=== PATIENT | female | born 1940 | race African-American/Black ===

== ENCOUNTER 2017-01-21 11:49 | Inpatient (IN) | payer MEDICARE, BC ==
[~2017-01-21] VITALS: Ht 160 cm; Wt 45.8 kg
[2017-01-21 12:24] VITALS: BP 192/90
[2017-01-21 13:15] LABS: BASOPHILS % (AUTO) 0.6 % (0.0-2.0); EOSINOPHILS % (AUTO) 1.2 % (0.0-3.0); LYMPHOCYTES % (AUTO) 15.6 % (20.0-45.0); MEAN CORPUSCULAR HEMOGLOBIN 29.4 PG (27.0-31.0); MEAN CORPUSCULAR HGB CONC 31.5 G/DL (32.0-36.0); MEAN CORPUSCULAR VOLUME 94 FL (80-99); MEAN PLATELET VOLUME 7.2 FL (6.5-10.1); MONOCYTES % (AUTO) 6.9 % (1.0-10.0); NEUTROPHILS % (AUTO) 75.7 % (45.0-75.0); PLATELET COUNT 412 K/UL (150-450); RED BLOOD COUNT 3.67 M/UL (4.20-5.40); WHITE BLOOD COUNT 12.9 K/UL (4.8-10.8)
[2017-01-21 13:30] VITALS: BP 171/119
[2017-01-21 13:45] LABS: THYROID STIMULATING HORMONE 1.11 uIU/mL (0.300-4.500)
--- NOTE | 2017-01-21 14:14 | Diagnostic Imaging Report ---
Indications: History of multiple TIAs, left-sided weakness Technique: Spiral acquisitions obtained through the brain. Angled axial and coronal 5 x 5 mm slices were reconstructed. Total dose length product 1358 mGycm. CTDI vol(s) 70 mGy Comparison: None Findings: There is age-related enlargement of ventricles and extra-axial CSF spaces. Old lacunar infarct are seen in the right basal ganglia. No acute hemorrhage or edema. No mass effect or midline shift. There is extensive periventricular the white matter chronic ischemic change. There is complete opacification of left maxillary sinus as well as of the left ethmoid sinuses in the right sphenoid sinus. The mastoids are clear. The included orbits are unremarkable. The calvarium is intact. Impression: Chronic and age-related changes. Negative for acute intracranial bleed or mass effect Fairly extensive sinus disease The CT scanner at [facility] is accredited by the [employer] and the scans are performed using protocols designed to limit radiation exposure to as low as reasonably achievable to attain images of sufficient resolution adequate for diagnostic evaluation.
[2017-01-21 14:24] VITALS: BP 164/98
[2017-01-21 14:45] LABS: ALANINE AMINOTRANSFERASE 14 U/L (3-33); ALBUMIN/GLOBULIN RATIO 0.7 (1.0-2.7); ANION GAP 19 (5-15); ASPARTATE AMINO TRANSFERASE 17 U/L (5-40); CALCIUM 9.1 mg/dL (8.6-10.2); CARBON DIOXIDE 21 mEQ/L (20-30); CHLORIDE 100 mEQ/L (98-107); CREATININE 0.9 mg/dL (0.5-0.9); HEMOLYSIS 2; LIPASE 63 U/L (< 60); POTASSIUM 3.4 mEQ/L (3.4-4.9); SODIUM 140 mEQ/L (135-145); TOTAL PROTEIN 6.9 g/dL (6.6-8.7)
--- NOTE | 2017-01-21 14:58 | Emergency Room Report ---
History of Present Illness General Chief Complaint: General Complaint Source: Patient, Family Member, PMD Present Illness HPI This patient presents at the request of her primary care physician. She is accompanied by her . The patient has been declining over the past several months has not been eating. She is having failure to thrive and a significant amount of weight loss. She presents for further evaluation and admission to the hospital for G-tube placement. The patient herself has no complaints. She denies pain. There's been no recent illness. There is no vomiting. There are no other complaints. Allergies: Coded Allergies: No Known Allergies (Unverified , 01/21/17) Patient History Past Medical History: see triage record, DM, HTN, CVA/TIA, dementia Social History: Denies: alcohol use, drug use, smoking Reviewed Nursing Documentation: PMH: Agreed, PSxH: Agreed Nursing Documentation-PMH Past Medical History: No History, Except For Hx Hypertension: Yes Hx Diabetes: Yes Hx Cerebrovascular Accident: Yes - TIA x 4 Review of Systems All Other Systems: negative except mentioned in HPI Physical Exam Vital Signs Date Time Temp Pulse Resp B/P Pulse Ox O2 Delivery O2 Flow Rate FiO2 01/21/17 12:19 99.3 95 18 192/90 100 Room Air Sp02 EP Interpretation: reviewed, normal General Appearance: no apparent distress, alert, GCS 15, non-toxic, cachetic Head: normocephalic, atraumatic Eyes: bilateral eye PERRL, bilateral eye normal inspection ENT: hearing grossly normal, normal pharynx, no angioedema, normal voice Neck: full range of motion, supple/symm/no masses Respiratory: chest non-tender, lungs clear, normal breath sounds, speaking full sentences Cardiovascular #1: regular rate, rhythm, no edema Gastrointestinal: normal bowel sounds, non tender, soft, non-distended, no guarding, no rebound Rectal: deferred Musculoskeletal: back normal, normal range of motion, non-tender Neurologic: alert, oriented x3, responsive, motor strength/tone normal, sensory intact, speech normal Psychiatric: judgement/insight normal, memory normal, mood/affect normal, no suicidal/homicidal ideation Skin: normal color, no rash, warm/dry, well hydrated Medical Decision Making Diagnostic Impression: Primary Impression: Failure to thrive in adult Additional Impressions: Dementia Weight loss ER Course This patient presents with failure to thrive, weight loss and dementia. She presents for G-tube placement. She's had significant decline over the past 7 months. She was admitted for further evaluation and treatment. There are no significant abnormalities found on CBC or CMP. She was admitted to the medical surgical floor. Labs Test 01/21/17 13:00 01/21/17 14:16 White Blood Count 12.9 K/UL (4.8-10.8) Red Blood Count 3.67 M/UL (4.20-5.40) Hemoglobin 10.8 G/DL (12.0-16.0) Hematocrit 34.3 % (37.0-47.0) Mean Corpuscular Volume 94 FL (80-99) Mean Corpuscular Hemoglobin 29.4 PG (27.0-31.0) Mean Corpuscular Hemoglobin Concent 31.5 G/DL (32.0-36.0) Red Cell Distribution Width 14.0 % (11.6-14.8) Platelet Count 412 K/UL (150-450) Mean Platelet Volume 7.2 FL (6.5-10.1) Neutrophils (%) (Auto) 75.7 % (45.0-75.0) Lymphocytes (%) (Auto) 15.6 % (20.0-45.0) Monocytes (%) (Auto) 6.9 % (1.0-10.0) Eosinophils (%) (Auto) 1.2 % (0.0-3.0) Basophils (%) (Auto) 0.6 % (0.0-2.0) Thyroid Stimulating Hormone (TSH) 1.110 uIU/mL (0.300-4.500) Free Thyroxine 1.13 ng/dL (0.86-1.85) Free Triiodothyronine 2.0 pg/mL (2.3-4.2) Sodium Level 140 mEQ/L (135-145) Potassium Level 3.4 mEQ/L (3.4-4.9) Chloride Level 100 mEQ/L (98-107) Carbon Dioxide Level 21 mEQ/L (20-30) Anion Gap 19 (5-15) Blood Urea Nitrogen 22 mg/dL (7-23) Creatinine 0.9 mg/dL (0.5-0.9) Estimat Glomerular Filtration Rate mL/min (>60) Glucose Level 143 mg/dL (74-106) Calcium Level 9.1 mg/dL (8.6-10.2) Total Bilirubin 0.5 mg/dL (0.0-1.2) Aspartate Amino Transf (AST/SGOT) 17 U/L (5-40) Alanine Aminotransferase (ALT/SGPT) 14 U/L (3-33) Alkaline Phosphatase 41 U/L (35-104) Total Protein 6.9 g/dL (6.6-8.7) Albumin 2.9 g/dL (3.5-5.2) Globulin 4.0 g/dL Albumin/Globulin Ratio 0.7 (1.0-2.7) Lipase 63 U/L (< 60) EKG Diagnostic Results Rate: normal Rhythm: NSR ST Segments: no acute changes Rhythm Strip Diag. Results EP Interpretation: yes Rate: 90's Rhythm: NSR, no PVC's, no ectopy Last Vital Signs Date Time Temp Pulse Resp B/P Pulse Ox O2 Delivery O2 Flow Rate FiO2 01/21/17 14:40 99.3 91 16 164/98 100 Room Air Disposition: ADMITTED INPATIENT Condition: Stable Referrals: ELLIE SOSA (PCP) MARTIN GONZALEZ D.O. Jan 21, 2017 14:57
[2017-01-21] MEDS ORDERED: ZETIA10 MG ORAL (15:23)
[2017-01-21] MEDS ORDERED: ASPIR 8181 MG ORAL (15:23)
[2017-01-21] MEDS ORDERED: AMLODIPINE BES2.5 MG ORAL (15:23)
[2017-01-21] MEDS ORDERED: METFORMIN HCL500 M5 PO (15:23)
[2017-01-21] MEDS ORDERED: LISINOPRIL-HCT1 EACH ORAL (15:23)
[2017-01-21] MEDS ORDERED: PLAVIX75 MG ORAL (15:23)
[2017-01-21 16:00] VITALS: BP_SYST 156; BP_SYST 166; BP_DIAS 91; BP_DIAS 99
[2017-01-21] MEDS ORDERED: Morphine Sulfate 2mg/ml Inj IVP PRN (16:45)
[2017-01-21] MEDS ORDERED: LORazepam Inj 2mg/ml 1ml IV PRN (16:45)
[2017-01-21] MEDS ORDERED: Mylanta II UD 30ml ORAL PRN (16:45)
--- NOTE | 2017-01-21 16:56 | History and Physical ---
History of Present Illness General Date patient seen: Jan 21, 2017 Reason for Hospitalization: not eating Present Illness HPI 76 year old female with hx of CVA, DM, HTN, presented at the request of her primary care physician for evaluation of declining over the past several months , and not been eating. She is having failure to thrive and a significant amount of weight loss. She presents for further evaluation and admission to the hospital for potential G-tube placement. The patient herself has no complaints. She denies pain. There's been no recent illness. There is no vomiting. There are no other complaints. Allergies: Coded Allergies: No Known Allergies (Unverified , 01/21/17) Medication History Scheduled Amlodipine Besylate* (Amlodipine Besylate*), 2.5 MG ORAL DAILY, (Reported) Aspirin* (Aspir 81*), 81 MG ORAL DAILY, (Reported) Clopidogrel Bisulfate* (Plavix*), 75 MG ORAL DAILY, (Reported) Ezetimibe (Zetia*), 10 MG ORAL BEDTIME, (Reported) Lisinopril/Hydrochlorothiazide 10-12.5 Mg Tab (Lisinopril-Hctz 10-12.5 Mg Tab), 1 TAB ORAL DAILY, (Reported) Metformin HCl (Metformin HCl ER), 500 MG PO DAILY, (Reported) Patient History History Provided By: Patient Healthcare decision maker Resuscitation status Advanced Directive on File No Past Medical/Surgical History Past Medical/Surgical History: (1) Cerebrovascular accident (CVA) (2) Diabetes mellitus (3) Weight loss (4) Dementia Review of Systems All Other Systems: negative except mentioned in HPI Physical Exam General Appearance: cachetic Lines, tubes and drains: peripheral HEENT: normocephalic, atraumatic Neck: non-tender, normal alignment Respiratory/Chest: chest wall non-tender, lungs clear Cardiovascular/Chest: normal peripheral pulses, normal rate Abdomen: normal bowel sounds, non tender Extremities: normal range of motion Skin Exam: normal pigmentation Neurologic: hand box folder II-XII grossly normal Last 24 Hour Vital Signs Date Time Temp Pulse Resp B/P Pulse Ox O2 Delivery O2 Flow Rate FiO2 01/21/17 14:40 99.3 91 16 164/98 100 Room Air 01/21/17 14:24 91 16 164/98 100 Room Air 01/21/17 13:30 97 16 171/119 100 Room Air 01/21/17 12:24 99.3 89 18 192/90 100 Room Air 01/21/17 12:19 99.3 95 18 192/90 100 Room Air Laboratory Tests Test 01/21/17 13:00 01/21/17 14:16 White Blood Count 12.9 K/UL (4.8-10.8) H Red Blood Count 3.67 M/UL (4.20-5.40) L Hemoglobin 10.8 G/DL (12.0-16.0) L Hematocrit 34.3 % (37.0-47.0) L Mean Corpuscular Volume 94 FL (80-99) Mean Corpuscular Hemoglobin 29.4 PG (27.0-31.0) Mean Corpuscular Hemoglobin Concent 31.5 G/DL (32.0-36.0) L Red Cell Distribution Width 14.0 % (11.6-14.8) Platelet Count 412 K/UL (150-450) Mean Platelet Volume 7.2 FL (6.5-10.1) Neutrophils (%) (Auto) 75.7 % (45.0-75.0) H Lymphocytes (%) (Auto) 15.6 % (20.0-45.0) L Monocytes (%) (Auto) 6.9 % (1.0-10.0) Eosinophils (%) (Auto) 1.2 % (0.0-3.0) Basophils (%) (Auto) 0.6 % (0.0-2.0) Thyroid Stimulating Hormone (TSH) 1.110 uIU/mL (0.300-4.500) Free Thyroxine 1.13 ng/dL (0.86-1.85) Free Triiodothyronine 2.0 pg/mL (2.3-4.2) L Sodium Level 140 mEQ/L (135-145) Potassium Level 3.4 mEQ/L (3.4-4.9) Chloride Level 100 mEQ/L (98-107) Carbon Dioxide Level 21 mEQ/L (20-30) Anion Gap 19 (5-15) H Blood Urea Nitrogen 22 mg/dL (7-23) Creatinine 0.9 mg/dL (0.5-0.9) Estimat Glomerular Filtration Rate mL/min (>60) Glucose Level 143 mg/dL (74-106) H Calcium Level 9.1 mg/dL (8.6-10.2) Total Bilirubin 0.5 mg/dL (0.0-1.2) Aspartate Amino Transf (AST/SGOT) 17 U/L (5-40) Alanine Aminotransferase (ALT/SGPT) 14 U/L (3-33) Alkaline Phosphatase 41 U/L (35-104) Total Protein 6.9 g/dL (6.6-8.7) Albumin 2.9 g/dL (3.5-5.2) L Globulin 4.0 g/dL Albumin/Globulin Ratio 0.7 (1.0-2.7) L Lipase 63 U/L (< 60) H Height (Feet): 5 Height (Inches): 4.00 Weight (Pounds): 102 Medications Current Medications Medications (Trade) Dose Ordered Sig/Mian Route PRN Reason Start Time Stop Time Status Last Admin Dose Admin Acetaminophen (Tylenol) 650 mg Q4H PRN ORAL fever 01/21/17 16:45 02/20/17 16:44 UNV Al Hydroxide/Mg Hydroxide (Mylanta II) 30 ml Q6H PRN ORAL dyspepsia 01/21/17 16:45 02/20/17 16:44 UNV Amlodipine Besylate (Norvasc) 2.5 mg DAILY ORAL 01/22/17 09:00 02/21/17 08:59 UNV Amlodipine Besylate (Norvasc) 10 mg DAILY ORAL 01/22/17 09:00 02/21/17 08:59 UNV Dextrose (Dextrose 50%) STAT PRN IV Hypoglycemia 01/21/17 16:45 02/20/17 16:44 UNV Lisinopril (Prinivil) 20 mg DAILY ORAL 01/21/17 16:45 02/20/17 16:44 UNV Lorazepam (Ativan 2mg/ml 1ml) 0.5 mg Q4H PRN IV For Anxiety 01/21/17 16:45 01/28/17 16:44 UNV Morphine Sulfate (Morphine Sulfate) 1 mg EVERY 4 HOURS PRN IVP For Pain 01/21/17 16:45 01/28/17 16:44 UNV Ondansetron HCl (Zofran) 4 mg Q6H PRN IVP Nausea & Vomiting 01/21/17 16:45 02/20/17 16:44 UNV Polyethylene Glycol (Miralax) 17 gm HSPRN PRN ORAL Constipation 01/21/17 16:45 02/20/17 16:44 UNV Zolpidem Tartrate (Ambien) 5 mg HSPRN PRN ORAL Insomnia 01/21/17 16:45 02/20/17 16:44 UNV Assessment/Plan Problem List: (1) Failure to thrive in adult ICD Codes: R62.7 - Adult failure to thrive SNOMED: 019456611 (2) Severe protein-calorie malnutrition ICD Codes: E43 - Unspecified severe protein-calorie malnutrition SNOMED: 569765083 (3) Weight loss ICD Codes: R63.4 - Abnormal weight loss SNOMED: 75515536 (4) Dementia ICD Codes: F03.90 - Unspecified dementia without behavioral disturbance SNOMED: 75166493 (5) Diabetes mellitus ICD Codes: E11.9 - Type 2 diabetes mellitus without complications SNOMED: 46080690 (6) Cerebrovascular accident (CVA) ICD Codes: I63.9 - Cerebral infarction, unspecified SNOMED: 502665593 (7) HTN (hypertension) ICD Codes: I10 - Essential (primary) hypertension SNOMED: 36666069 Assessment/Plan calorie count swallow evaluation PT/ot psych evaluation GI evaluation dv t prophylasix monitor BP and treat, TONA BLANDON Jan 21, 2017 16:56
[2017-01-21] MEDS: Lisinopril 20mg tab ORAL SCH (17:46)
[2017-01-21 18:28] LABS: PROTHROMBIN TIME 10.6 SEC (9.30-11.50)
[2017-01-21 19:05] LABS: ANISOCYTOSIS 1+; BAND NEUTROPHILS % (MANUAL) 3 % (0-8); BASOPHILS % (MANUAL) 0 % (0-2); EOSINOPHILS % (MANUAL) 1 % (0-3); HYPOCHROMASIA 1+; LYMPHOCYTES % (MANUAL) 28 % (20-45); NEUTROPHILS % (MANUAL) 60 % (45-75); PLATELET ESTIMATE ADEQUATE; PLATELET MORPHOLOGY NORMAL; TOTAL CELLS COUNTED 100
[2017-01-21 19:16] LABS: PATH BLOOD SMEAR/OMC SENT TO PATHOLOGIST
[2017-01-21] MEDS: NovoLOG Insulin Flexpen SUBQ SCH (20:06)
[2017-01-21] MEDS ORDERED: Zolpidem 5mg tab ORAL PRN (21:00)
[2017-01-21] MEDS ORDERED: Miralax 17gm pkt ORAL PRN (21:00)
[2017-01-21 21:02] VITALS: BP 161/80
[2017-01-22 00:05] VITALS: BP 163/91
[2017-01-22 04:00] VITALS: BP 144/82
[2017-01-22] MEDS: NovoLOG Insulin Flexpen SUBQ SCH ×4 (06:09→22:16)
[2017-01-22 06:36] LABS: BASOPHILS % (AUTO) 0.4 % (0.0-2.0); EOSINOPHILS % (AUTO) 1.6 % (0.0-3.0); LYMPHOCYTES % (AUTO) 21.8 % (20.0-45.0); MEAN CORPUSCULAR HEMOGLOBIN 29.3 PG (27.0-31.0); MEAN CORPUSCULAR HGB CONC 31.6 G/DL (32.0-36.0); MEAN CORPUSCULAR VOLUME 93 FL (80-99); MEAN PLATELET VOLUME 6.8 FL (6.5-10.1); NEUTROPHILS % (AUTO) 68.2 % (45.0-75.0); PLATELET COUNT 420 K/UL (150-450); RED BLOOD COUNT 3.16 M/UL (4.20-5.40)
[2017-01-22 07:03] LABS: ALANINE AMINOTRANSFERASE 17 U/L (3-33); ALBUMIN/GLOBULIN RATIO 0.8 (1.0-2.7); ANION GAP 17 (5-15); ASPARTATE AMINO TRANSFERASE 19 U/L (5-40); CALCIUM 8.8 mg/dL (8.6-10.2); CARBON DIOXIDE 22 mEQ/L (20-30); CHLORIDE 101 mEQ/L (98-107); CHOLESTEROL 167 mg/dL (< 200); CHOLESTEROL/HDL RATIO 5.4 (3.3-4.4); CREATININE 0.6 mg/dL (0.5-0.9); HEMOLYSIS 4; LDL CHOLESTEROL (CALC.) 119 mg/dL (60-99); POTASSIUM 3.3 mEQ/L (3.4-4.9); SODIUM 140 mEQ/L (135-145); TOTAL PROTEIN 6.5 g/dL (6.6-8.7)
[2017-01-22 07:33] VITALS: BP 166/99
[2017-01-22] MEDS: Lisinopril 20mg tab ORAL SCH (10:50)
[2017-01-22] MEDS: Heparin 5000 units/ml inj SUBQ SCH ×2 (10:52→22:17)
[2017-01-22 11:15] VITALS: BP 193/111
[2017-01-22 16:00] VITALS: BP 159/90
--- NOTE | 2017-01-22 16:10 | GI Initial Consult Note ---
PerlitaCarmel Atwoodoi N.P. 01/22/17 1610: History of Present Illness General Date patient seen: Jan 22, 2017 Time patient seen: 13:00 Reason for Hospitalization: General Complaint Referring physician: TONA AGARWAL Reason for Consultation: FTT Present Illness HPI This patient presents at the request of her primary care physician. She is accompanied by her . The patient has been declining over the past several months has not been eating. She is having failure to thrive and a significant amount of weight loss. She presents for further evaluation and admission to the hospital for G-tube placement. The patient herself has no complaints. She denies pain. There's been no recent illness. There is no vomiting. There are no other complaints. GI CONSULT: HPI as noted above. GI consulted for PEG evaluation. Pt seen on floor, awake and alert NAD. She presents today with leukocytosis, anemia, hypoalbuminemia and elevated lipase. Unknown history of endoscopic procedures. Home Meds Active Scripts Insulin Aspart (Novolog Flexpen) 100 Unit/1 Ml Insuln.pen, 0 UNITS SUBQ BEFORE MEALS AND HS for 30 Days, EA Prov:JAMIA01/23/17 Mirtazapine* (MIRTAZAPINE*) 15 Mg Tablet, 15 MG ORAL BEDTIME for 30 Days, TAB Prov:NORIS01/23/17 Lisinopril (LISINOPRIL*) 20 Mg Tablet, 20 MG ORAL DAILY for 30 Days, TAB Prov:NORIS01/23/17 Dronabinol* (MARINOL*) 2.5 Mg Capsule, 2.5 MG ORAL BID for 30 Days, CAP Prov:MERCEDEZ01/23/17 Amlodipine Besylate (Norvasc) 10 Mg Tablet, 10 MG ORAL DAILY for 30 Days, TAB Prov:MERCEDEZ01/23/17 Reported Medications Metformin HCl (Metformin HCl ER) 500 Mg [id number], 500 MG PO DAILY, TAB 01/21/17 Aspirin* (ASPIR 81*) 81 Mg Tablet.dr, 81 MG ORAL DAILY, TAB 01/21/17 Ezetimibe (ZETIA*) 10 Mg Tablet, 10 MG ORAL BEDTIME, TAB 01/21/17 Amlodipine Besylate* (AMLODIPINE BESYLATE*) 2.5 Mg Tablet, 2.5 MG ORAL DAILY, TAB 01/21/17 Clopidogrel Bisulfate* (PLAVIX*) 75 Mg Tablet, 75 MG ORAL DAILY, TAB 01/21/17 Discontinued Reported Medications Lisinopril/Hydrochlorothiazide 10-12.5 Mg Tab (LISINOPRIL-HCTZ 10-12.5 MG TAB) 1 Each Tablet, 1 TAB ORAL DAILY, TAB 01/21/17 Med list reviewed/reconciled: Yes Allergies: Coded Allergies: No Known Allergies (Unverified , 01/21/17) Patient History History Provided By: Medical Record PMH Narrative Past Medical History: see triage record, DM, HTN, CVA/TIA, dementia Social History: Denies: alcohol use, drug use, smoking Reviewed Nursing Documentation: PMH: Agreed, PSxH: Agreed Nursing Documentation-PMH Past Medical History: No History, Except For Hx Hypertension: Yes Hx Diabetes: Yes Hx Cerebrovascular Accident: Yes - TIA x 4 Review of Systems All Other Systems: limited Physical Exam Vital Signs Date Time Temp Pulse Resp B/P Pulse Ox O2 Delivery O2 Flow Rate FiO2 01/21/17 12:19 99.3 95 18 192/90 100 Room Air Sp02 EP Interpretation: reviewed Labs Laboratory Tests Test 01/21/17 17:20 01/22/17 05:15 Erythrocyte Sedimentation Rate 77 MM/HR (0-30) H Reticulocyte Count 2.0 % (0.0-2.0) Prothrombin Time 10.6 SEC (9.30-11.50) Prothromb Time International Ratio 1.0 (0.9-1.1) Activated Partial Thromboplast Time 27 SEC (23-33) Iron Level 70 ug/dL (37-145) Total Iron Binding Capacity 190 ug/dL (250-400) L Percent Iron Saturation 37 % (15-50) Unsaturated Iron Binding 120 ug/dL (112-346) Lactate Dehydrogenase 156 U/L (135-230) Carcinoembryonic Antigen 3.3 ng/mL H Vitamin B12 Level 756 pg/mL (211-946) Folate 9.0 ng/mL (>3.0) White Blood Count 12.0 K/UL (4.8-10.8) H Red Blood Count 3.16 M/UL (4.20-5.40) L Hemoglobin 9.3 G/DL (12.0-16.0) L Hematocrit 29.3 % (37.0-47.0) L Mean Corpuscular Volume 93 FL (80-99) Mean Corpuscular Hemoglobin 29.3 PG (27.0-31.0) Mean Corpuscular Hemoglobin Concent 31.6 G/DL (32.0-36.0) L Red Cell Distribution Width 14.0 % (11.6-14.8) Platelet Count 420 K/UL (150-450) Mean Platelet Volume 6.8 FL (6.5-10.1) Neutrophils (%) (Auto) 68.2 % (45.0-75.0) Lymphocytes (%) (Auto) 21.8 % (20.0-45.0) Monocytes (%) (Auto) 8.0 % (1.0-10.0) Eosinophils (%) (Auto) 1.6 % (0.0-3.0) Basophils (%) (Auto) 0.4 % (0.0-2.0) Sodium Level 140 mEQ/L (135-145) Potassium Level 3.3 mEQ/L (3.4-4.9) L Chloride Level 101 mEQ/L (98-107) Carbon Dioxide Level 22 mEQ/L (20-30) Anion Gap 17 (5-15) H Blood Urea Nitrogen 14 mg/dL (7-23) Creatinine 0.6 mg/dL (0.5-0.9) Estimat Glomerular Filtration Rate mL/min (>60) Glucose Level 96 mg/dL (74-106) Calcium Level 8.8 mg/dL (8.6-10.2) Total Bilirubin 0.7 mg/dL (0.0-1.2) Aspartate Amino Transf (AST/SGOT) 19 U/L (5-40) Alanine Aminotransferase (ALT/SGPT) 17 U/L (3-33) Alkaline Phosphatase 38 U/L (35-104) Total Protein 6.5 g/dL (6.6-8.7) L Albumin 2.9 g/dL (3.5-5.2) L Globulin 3.6 g/dL Albumin/Globulin Ratio 0.8 (1.0-2.7) L Triglycerides Level 86 mg/dL (< 150) Cholesterol Level 167 mg/dL (< 200) LDL Cholesterol 119 mg/dL (60-99) H HDL Cholesterol 31 mg/dL (> 60) Cholesterol/HDL Ratio 5.4 (3.3-4.4) H General Appearance: no apparent distress, thin Head: normocephalic EENT: normal ENT inspection Neck: supple Respiratory: normal breath sounds, no respiratory distress Cardiovascular: normal rate Gastrointestinal: normal inspection, non tender, soft Rectal: deferred Neurologic: normal inspection, alert, responsive Psychiatric: normal inspection, judgement/insight normal Skin: normal inspection, normal color, no rash Lymphatic: normal inspection, no adenopathy Current Medications Current Medications Medications (Trade) Dose Ordered Sig/Mian Route PRN Reason Start Time Stop Time Status Last Admin Dose Admin Acetaminophen (Tylenol) 650 mg Q4H PRN ORAL T>100.5 01/21/17 16:45 02/20/17 16:44 Al Hydroxide/Mg Hydroxide (Mylanta II) 30 ml Q6H PRN ORAL dyspepsia 01/21/17 16:45 02/20/17 16:44 Amlodipine Besylate (Norvasc) 10 mg DAILY ORAL 01/22/17 18:00 02/21/17 17:59 Dextrose (Dextrose 50%) STAT PRN IV Hypoglycemia 01/21/17 17:00 02/20/17 16:59 Heparin Sodium (Porcine) (Heparin 5000 units/ml) 5,000 units EVERY 12 HOURS SUBQ 01/22/17 09:00 02/21/17 08:59 01/22/17 10:52 Insulin Aspart (NovoLOG) BEFORE MEALS AND HS SUBQ 01/21/17 21:00 02/20/17 20:59 01/22/17 14:18 Lisinopril (Prinivil) 20 mg DAILY ORAL 01/21/17 17:30 02/20/17 17:29 01/22/17 10:50 Lorazepam (Ativan 2mg/ml 1ml) 0.5 mg Q4H PRN IV For Anxiety 01/21/17 16:45 01/28/17 16:44 Morphine Sulfate (Morphine Sulfate) 1 mg Q4H PRN IVP PAIN 4-10 01/21/17 16:45 01/28/17 16:44 Ondansetron HCl (Zofran) 4 mg Q6H PRN IVP Nausea & Vomiting 01/21/17 16:45 02/20/17 16:44 Polyethylene Glycol (Miralax) 17 gm HSPRN PRN ORAL Constipation 01/21/17 21:00 02/20/17 20:59 Zolpidem Tartrate (Ambien) 5 mg HSPRN PRN ORAL Insomnia 01/21/17 21:00 02/20/17 20:59 GI: Plan Problems: (1) Anemia (2) Hypoalbuminemia due to protein-calorie malnutrition (3) Elevated lipase (4) Failure to thrive in adult (5) Severe protein-calorie malnutrition (6) Dementia (7) Weight loss Plan ST eval reviewed >> MECH SOFT(GROUND) WITH NECTAR THICK LIQUIDS. STRICT ASPIRATION PRECAUTIONS WITH 1TO1 FEEDING. anemia work up reviewed >> pending OB stool collection, otherwise unremarkable head CT reviewed >> negative will consider PEG pending video swallow fu APCT fu calorie count push PO H2 monitor H&H, transfuse prn repeat lipase fu labs Discussed with Dr. Henriquez. Thank you for referring this patient, we will follow. ANDREIA HENRIQUEZ 01/30/17 1416: History of Present Illness General Reason for Hospitalization: General Complaint Present Illness Home Meds Active Scripts Insulin Aspart (Novolog Flexpen) 100 Unit/1 Ml Insuln.pen, 0 UNITS SUBQ BEFORE MEALS AND HS for 30 Days, EA Prov:NORIS01/23/17 Mirtazapine* (MIRTAZAPINE*) 15 Mg Tablet, 15 MG ORAL BEDTIME for 30 Days, TAB Prov:,01/23/17 Lisinopril (LISINOPRIL*) 20 Mg Tablet, 20 MG ORAL DAILY for 30 Days, TAB Prov:01/23/17 Dronabinol* (MARINOL*) 2.5 Mg Capsule, 2.5 MG ORAL BID for 30 Days, CAP Prov:01/23/17 Amlodipine Besylate (Norvasc) 10 Mg Tablet, 10 MG ORAL DAILY for 30 Days, TAB Prov:,01/23/17 Reported Medications Metformin HCl (Metformin HCl ER) 500 Mg [id number], 500 MG PO DAILY, TAB 01/21/17 Aspirin* (ASPIR 81*) 81 Mg Tablet.dr, 81 MG ORAL DAILY, TAB 01/21/17 Ezetimibe (ZETIA*) 10 Mg Tablet, 10 MG ORAL BEDTIME, TAB 01/21/17 Amlodipine Besylate* (AMLODIPINE BESYLATE*) 2.5 Mg Tablet, 2.5 MG ORAL DAILY, TAB 01/21/17 Clopidogrel Bisulfate* (PLAVIX*) 75 Mg Tablet, 75 MG ORAL DAILY, TAB 01/21/17 Discontinued Reported Medications Lisinopril/Hydrochlorothiazide 10-12.5 Mg Tab (LISINOPRIL-HCTZ 10-12.5 MG TAB) 1 Each Tablet, 1 TAB ORAL DAILY, TAB 01/21/17 Allergies: Coded Allergies: No Known Allergies (Unverified , 01/21/17) GI: Plan Plan The patient was seen and examined at bedside and all new and available data was reviewed in the patients chart. I agree with the above findings, impression and plan. (Patient seen earlier today. Signature stamp does not reflect patient encounter time.). -Carmel Valerio MD, N.P. Jan 22, 2017 16:10 ANDREIA HENRIQUEZ Jan 30, 2017 14:16
[2017-01-22 19:00] VITALS: BP 144/88
[2017-01-23] VITALS: BP 148/92
--- NOTE | 2017-01-23 00:08 | Consultation ---
DATE OF CONSULTATION: 01/22/2017 HISTORY OF PRESENT ILLNESS: This is a 76-year-old female with a history of hypertension, diabetes mellitus, CVA, TIA, and dementia has been admitted to the hospital due to and weight loss. The patient is having failure to thrive and has lost weight significantly. During the evaluation, the patient presented with depressed mood, decreased energy, anhedonia, cognitive impairment including memory and concentration and intervention. No manic or psychotic symptoms. The patient does not have any other GI symptoms including vomiting or nausea. PAST PSYCHIATRIC HISTORY: Denies any history of psychiatric disorder, however, she is diagnosed with dementia. She is currently on no psychotropic medications. PAST MEDICAL HISTORY: Significant for diabetes mellitus, hypertension, CVA, TIA, and dementia. ALLERGIES: No known drug allergies. SUBSTANCE ABUSE HISTORY: No history of illicit drug use or alcohol. MENTAL STATUS EXAMINATION: The patient is alert and oriented x3. Mood is dysphoric. Affect is constricted and congruent. Thought process is concrete. Thought content, no suicidal or homicidal ideation. No delusions. No AVH. Insight and judgment is fair. ASSESSMENT: AXIS I: 1. Major depressive disorder. 2. Dementia. AXIS II: Deferred. AXIS III: 1. Cerebrovascular accident. 2. Diabetes mellitus. 3. Failure to thrive. AXIS IV: Low. AXIS V: 20. PLAN: 1. The patient will be started on Remeron 15 mg by mouth at bedtime. 2. We will continue to follow and readjust the medications. Kory Bello M.D. DR: MELO JOB#: [id number] CC:
[2017-01-23 04:00] VITALS: BP 144/86
[2017-01-23] MEDS: NovoLOG Insulin Flexpen SUBQ SCH ×4 (06:44→20:30)
[2017-01-23 07:21] LABS: BASOPHILS % (AUTO) 0.5 % (0.0-2.0); EOSINOPHILS % (AUTO) 1.9 % (0.0-3.0); LYMPHOCYTES % (AUTO) 24.2 % (20.0-45.0); MEAN CORPUSCULAR HEMOGLOBIN 29.6 PG (27.0-31.0); MEAN CORPUSCULAR HGB CONC 31.7 G/DL (32.0-36.0); MEAN CORPUSCULAR VOLUME 93 FL (80-99); MEAN PLATELET VOLUME 6.6 FL (6.5-10.1); MONOCYTES % (AUTO) 8.7 % (1.0-10.0); NEUTROPHILS % (AUTO) 64.7 % (45.0-75.0); PLATELET COUNT 444 K/UL (150-450); RED BLOOD COUNT 3.26 M/UL (4.20-5.40); RED CELL DISTRIBUTION WIDTH 14.2 % (11.6-14.8); WHITE BLOOD COUNT 10.5 K/UL (4.8-10.8)
[2017-01-23 08:11] VITALS: BP 146/74
[2017-01-23] MEDS: Lisinopril 20mg tab ORAL SCH (09:40)
[2017-01-23] MEDS: Heparin 5000 units/ml inj SUBQ SCH ×2 (09:42→20:31)
[2017-01-23 11:39] VITALS: BP 147/100
--- NOTE | 2017-01-23 12:05 | GI Progress Note ---
Assessment/Plan Problems: (1) Hypoalbuminemia due to protein-calorie malnutrition ICD Codes: E46 - Unspecified protein-calorie malnutrition SNOMED: 609349988, 324243326 (2) Elevated lipase ICD Codes: R74.8 - Abnormal levels of other serum enzymes SNOMED: 286379628 (3) Anemia ICD Codes: D64.9 - Anemia, unspecified SNOMED: 014121697 (4) Severe protein-calorie malnutrition ICD Codes: E43 - Unspecified severe protein-calorie malnutrition SNOMED: 532300625 (5) Failure to thrive in adult ICD Codes: R62.7 - Adult failure to thrive SNOMED: 505328865 (6) Weight loss ICD Codes: R63.4 - Abnormal weight loss SNOMED: 87005340 Status: stable, unchanged Status Narrative Discussed with Dr. Nevarez. Assessment/Plan ST eval reviewed >> MECH SOFT(GROUND) WITH NECTAR THICK LIQUIDS. STRICT ASPIRATION PRECAUTIONS WITH 1TO1 FEEDING. anemia work up reviewed >> pending OB stool collection, otherwise unremarkable head CT reviewed >> negative elevated lipase >> normal possible PEG ordered marinol fu video swallow fu APCT fu calorie count >> 25-50% of meals push PO per dietary H2 monitor H&H, transfuse prn fu labs The patient was seen and examined at bedside and all new and available data was reviewed in the patients chart. I agree with the above findings, impression and plan. (Patient seen earlier today. Signature stamp does not reflect patient encounter time.). -Gomez Nevarez MD Subjective Gastrointestinal/Abdominal: Reports: no symptoms Objective Last 24 Hour Vital Signs Date Time Temp Pulse Resp B/P Pulse Ox O2 Delivery O2 Flow Rate FiO2 01/23/17 11:39 97.3 79 20 147/100 95 Room Air 01/23/17 09:41 106 146/74 01/23/17 09:40 146/74 01/23/17 08:11 97.7 106 20 146/74 97 Room Air 01/23/17 04:00 97.7 79 18 144/86 100 Room Air 01/23/17 00:00 97.4 84 18 148/92 100 Room Air 01/22/17 19:00 98.0 79 18 144/88 100 Room Air 01/22/17 18:09 82 159/90 01/22/17 16:00 97.9 82 18 159/90 100 Room Air Intake and Output 01/22/17 01/23/17 19:00 07:00 Intake Total 200 ml 360 ml Balance 200 ml 360 ml Intake Oral 200 ml 360 ml # Voids 1 4 Laboratory Tests Test 01/23/17 04:55 White Blood Count 10.5 K/UL (4.8-10.8) Red Blood Count 3.26 M/UL (4.20-5.40) L Hemoglobin 9.7 G/DL (12.0-16.0) L Hematocrit 30.4 % (37.0-47.0) L Mean Corpuscular Volume 93 FL (80-99) Mean Corpuscular Hemoglobin 29.6 PG (27.0-31.0) Mean Corpuscular Hemoglobin Concent 31.7 G/DL (32.0-36.0) L Red Cell Distribution Width 14.2 % (11.6-14.8) Platelet Count 444 K/UL (150-450) Mean Platelet Volume 6.6 FL (6.5-10.1) Neutrophils (%) (Auto) 64.7 % (45.0-75.0) Lymphocytes (%) (Auto) 24.2 % (20.0-45.0) Monocytes (%) (Auto) 8.7 % (1.0-10.0) Eosinophils (%) (Auto) 1.9 % (0.0-3.0) Basophils (%) (Auto) 0.5 % (0.0-2.0) Iron Level 61 ug/dL (37-145) Total Iron Binding Capacity 215 ug/dL (250-400) L Percent Iron Saturation 28 % (15-50) Unsaturated Iron Binding 154 ug/dL (112-346) Amylase Level 149 U/L (10-110) H Lipase 48 U/L (< 60) Carcinoembryonic Antigen 3.4 ng/mL H CA 19-9 Antigen 0.600 U/mL (< 37) Free Thyroxine 1.24 ng/dL (0.86-1.85) Height (Feet): 5 Height (Inches): 3.00 Weight (Pounds): 101 General Appearance: no apparent distress, alert, thin Cardiovascular: normal rate Respiratory/Chest: normal breath sounds, no respiratory distress Abdominal Exam: normal bowel sounds, non tender, soft Carmel Bhat N.P. Jan 23, 2017 12:05 GOMEZ NEVAREZ Jan 30, 2017 14:18
[2017-01-23 16:00] VITALS: BP 145/93
[2017-01-23] MEDS: Dronabinol 2.5mg Cap ORAL SCH (17:59)
[2017-01-23 20:00] VITALS: BP 127/67
--- NOTE | 2017-01-23 21:51 | Pulmonology Progress Note ---
Assessment/Plan Problems: (1) Failure to thrive in adult (2) Severe protein-calorie malnutrition (3) Weight loss (4) Dementia (5) Diabetes mellitus (6) Cerebrovascular accident (CVA) (7) HTN (hypertension) Assessment/Plan eating well wbc lower swallow study noted d/w son Subjective ROS Limited/Unobtainable: Yes Interval Events: late note for 01/22 Constitutional: Reports: no symptoms HEENT: Repors: no symptoms Allergies: Coded Allergies: No Known Allergies (Unverified , 01/21/17) Objective Last 24 Hour Vital Signs Date Time Temp Pulse Resp B/P Pulse Ox O2 Delivery O2 Flow Rate FiO2 01/23/17 20:00 98.1 104 15 127/67 99 Room Air 01/23/17 16:00 98.1 113 16 145/93 100 Room Air 01/23/17 11:39 97.3 79 20 147/100 95 Room Air 01/23/17 09:41 106 146/74 01/23/17 09:40 146/74 01/23/17 08:11 97.7 106 20 146/74 97 Room Air 01/23/17 04:00 97.7 79 18 144/86 100 Room Air 01/23/17 00:00 97.4 84 18 148/92 100 Room Air Intake and Output 01/22/17 01/23/17 19:00 07:00 Intake Total 200 ml 360 ml Balance 200 ml 360 ml Intake Oral 200 ml 360 ml # Voids 1 4 Objective swallow study noted, pt is eating 50% of her food General Appearance: cachetic HEENT: normocephalic, atraumatic Respiratory/Chest: chest wall non-tender, lungs clear Cardiovascular: normal peripheral pulses, normal rate Abdomen: normal bowel sounds Extremities: no cyanosis Laboratory Tests 01/23/17 04:55: White Blood Count 10.5, Red Blood Count 3.26L, Hemoglobin 9.7L, Hematocrit 30.4L , Mean Corpuscular Volume 93, Mean Corpuscular Hemoglobin 29.6, Mean Corpuscular Hemoglobin Concent 31.7L, Red Cell Distribution Width 14.2, Platelet Count 444, Mean Platelet Volume 6.6, Neutrophils (%) (Auto) 64.7, Lymphocytes (%) (Auto) 24.2, Monocytes (%) (Auto) 8.7, Eosinophils (%) (Auto) 1.9, Basophils (%) (Auto) 0.5, Iron Level 61, Total Iron Binding Capacity 215L, Percent Iron Saturation 28, Unsaturated Iron Binding 154, Amylase Level 149H, Lipase 48, Carcinoembryonic Antigen 3.4H, CA 19-9 Antigen 0.600, Free Thyroxine 1.24 Current Medications Medications (Trade) Dose Ordered Sig/Mian Route PRN Reason Start Time Stop Time Status Last Admin Dose Admin Acetaminophen (Tylenol) 650 mg Q4H PRN ORAL T>100.5 01/21/17 16:45 02/20/17 16:44 Al Hydroxide/Mg Hydroxide (Mylanta II) 30 ml Q6H PRN ORAL dyspepsia 01/21/17 16:45 02/20/17 16:44 Amlodipine Besylate (Norvasc) 10 mg DAILY ORAL 01/22/17 18:00 02/21/17 17:59 01/23/17 09:41 Clonidine HCl (Catapres) 0.1 mg Q4H PRN ORAL SBP >160 01/22/17 17:00 02/21/17 16:59 Dextrose (Dextrose 50%) STAT PRN IV Hypoglycemia 01/21/17 17:00 02/20/17 16:59 Dronabinol (Marinol) 2.5 mg BID ORAL 01/23/17 18:00 02/22/17 17:59 01/23/17 17:59 Heparin Sodium (Porcine) (Heparin 5000 units/ml) 5,000 units EVERY 12 HOURS SUBQ 01/22/17 09:00 02/21/17 08:59 01/23/17 20:31 Insulin Aspart (NovoLOG) BEFORE MEALS AND HS SUBQ 01/21/17 21:00 02/20/17 20:59 01/23/17 20:30 Lisinopril (Prinivil) 20 mg DAILY ORAL 01/21/17 17:30 02/20/17 17:29 01/23/17 09:40 Lorazepam (Ativan 2mg/ml 1ml) 0.5 mg Q4H PRN IV For Anxiety 01/21/17 16:45 01/28/17 16:44 Mirtazapine (Remeron) 15 mg BEDTIME ORAL 01/22/17 21:00 02/21/17 20:59 01/23/17 20:29 Morphine Sulfate (Morphine Sulfate) 1 mg Q4H PRN IVP PAIN 4-10 01/21/17 16:45 01/28/17 16:44 Ondansetron HCl (Zofran) 4 mg Q6H PRN IVP Nausea & Vomiting 01/21/17 16:45 02/20/17 16:44 Polyethylene Glycol (Miralax) 17 gm HSPRN PRN ORAL Constipation 01/21/17 21:00 02/20/17 20:59 Zolpidem Tartrate (Ambien) 5 mg HSPRN PRN ORAL Insomnia 01/21/17 21:00 02/20/17 20:59 TONA BLANDON Jan 23, 2017 21:51
--- NOTE | 2017-01-23 21:51 | Pulmonology Progress Note ---
Assessment/Plan Problems: (1) Failure to thrive in adult (2) Severe protein-calorie malnutrition (3) Weight loss (4) Dementia (5) Diabetes mellitus (6) Cerebrovascular accident (CVA) (7) HTN (hypertension) Assessment/Plan eating well wbc lower swallow study noted d/w son dc planning to a rehab is in planning Subjective ROS Limited/Unobtainable: No Interval Events: no new complains Allergies: Coded Allergies: No Known Allergies (Unverified , 01/21/17) Objective Last 24 Hour Vital Signs Date Time Temp Pulse Resp B/P Pulse Ox O2 Delivery O2 Flow Rate FiO2 01/23/17 20:00 98.1 104 15 127/67 99 Room Air 01/23/17 16:00 98.1 113 16 145/93 100 Room Air 01/23/17 11:39 97.3 79 20 147/100 95 Room Air 01/23/17 09:41 106 146/74 01/23/17 09:40 146/74 01/23/17 08:11 97.7 106 20 146/74 97 Room Air 01/23/17 04:00 97.7 79 18 144/86 100 Room Air 01/23/17 00:00 97.4 84 18 148/92 100 Room Air Intake and Output 01/22/17 01/23/17 19:00 07:00 Intake Total 200 ml 360 ml Balance 200 ml 360 ml Intake Oral 200 ml 360 ml # Voids 1 4 Objective General Appearance: cachetic HEENT: normocephalic, atraumatic Respiratory/Chest: chest wall non-tender, lungs clear Cardiovascular: normal peripheral pulses, normal rate Abdomen: normal bowel sounds Extremities: no cyanosis Laboratory Tests 01/23/17 04:55: White Blood Count 10.5, Red Blood Count 3.26L, Hemoglobin 9.7L, Hematocrit 30.4L , Mean Corpuscular Volume 93, Mean Corpuscular Hemoglobin 29.6, Mean Corpuscular Hemoglobin Concent 31.7L, Red Cell Distribution Width 14.2, Platelet Count 444, Mean Platelet Volume 6.6, Neutrophils (%) (Auto) 64.7, Lymphocytes (%) (Auto) 24.2, Monocytes (%) (Auto) 8.7, Eosinophils (%) (Auto) 1.9, Basophils (%) (Auto) 0.5, Iron Level 61, Total Iron Binding Capacity 215L, Percent Iron Saturation 28, Unsaturated Iron Binding 154, Amylase Level 149H, Lipase 48, Carcinoembryonic Antigen 3.4H, CA 19-9 Antigen 0.600, Free Thyroxine 1.24 Current Medications Medications (Trade) Dose Ordered Sig/Mian Route PRN Reason Start Time Stop Time Status Last Admin Dose Admin Acetaminophen (Tylenol) 650 mg Q4H PRN ORAL T>100.5 01/21/17 16:45 02/20/17 16:44 Al Hydroxide/Mg Hydroxide (Mylanta II) 30 ml Q6H PRN ORAL dyspepsia 01/21/17 16:45 02/20/17 16:44 Amlodipine Besylate (Norvasc) 10 mg DAILY ORAL 01/22/17 18:00 02/21/17 17:59 01/23/17 09:41 Clonidine HCl (Catapres) 0.1 mg Q4H PRN ORAL SBP >160 01/22/17 17:00 02/21/17 16:59 Dextrose (Dextrose 50%) STAT PRN IV Hypoglycemia 01/21/17 17:00 02/20/17 16:59 Dronabinol (Marinol) 2.5 mg BID ORAL 01/23/17 18:00 02/22/17 17:59 01/23/17 17:59 Heparin Sodium (Porcine) (Heparin 5000 units/ml) 5,000 units EVERY 12 HOURS SUBQ 01/22/17 09:00 02/21/17 08:59 01/23/17 20:31 Insulin Aspart (NovoLOG) BEFORE MEALS AND HS SUBQ 01/21/17 21:00 02/20/17 20:59 01/23/17 20:30 Lisinopril (Prinivil) 20 mg DAILY ORAL 01/21/17 17:30 02/20/17 17:29 01/23/17 09:40 Lorazepam (Ativan 2mg/ml 1ml) 0.5 mg Q4H PRN IV For Anxiety 01/21/17 16:45 01/28/17 16:44 Mirtazapine (Remeron) 15 mg BEDTIME ORAL 01/22/17 21:00 02/21/17 20:59 01/23/17 20:29 Morphine Sulfate (Morphine Sulfate) 1 mg Q4H PRN IVP PAIN 4-10 01/21/17 16:45 01/28/17 16:44 Ondansetron HCl (Zofran) 4 mg Q6H PRN IVP Nausea & Vomiting 01/21/17 16:45 02/20/17 16:44 Polyethylene Glycol (Miralax) 17 gm HSPRN PRN ORAL Constipation 01/21/17 21:00 02/20/17 20:59 Zolpidem Tartrate (Ambien) 5 mg HSPRN PRN ORAL Insomnia 01/21/17 21:00 02/20/17 20:59 TONA BLANDON Jan 23, 2017 21:51
[2017-01-23] MEDS ORDERED: MARINOL2.5 MG ORAL (21:55)
[2017-01-23] MEDS ORDERED: NOVOLOG100 UNITS1 SUBQ (21:55)
[2017-01-23] MEDS ORDERED: MIRTAZAPINE15 M3 ORAL (21:55)
[2017-01-23] MEDS ORDERED: NORVASC10 MG ORAL (21:55)
[2017-01-23] MEDS ORDERED: LISINOPRIL20 MG ORAL (21:55)
[2017-01-24] VITALS: BP 151/95
[2017-01-24 04:00] VITALS: BP 156/99
[2017-01-24] MEDS: NovoLOG Insulin Flexpen SUBQ SCH ×3 (06:30→17:28)
[2017-01-24 07:35] LABS: BASOPHILS % (AUTO) 0.8 % (0.0-2.0); LYMPHOCYTES % (AUTO) 22.7 % (20.0-45.0); MEAN CORPUSCULAR HEMOGLOBIN 29.2 PG (27.0-31.0); MEAN CORPUSCULAR VOLUME 94 FL (80-99); MEAN PLATELET VOLUME 6.4 FL (6.5-10.1); MONOCYTES % (AUTO) 9.2 % (1.0-10.0); NEUTROPHILS % (AUTO) 65.5 % (45.0-75.0); PLATELET COUNT 454 K/UL (150-450); RED BLOOD COUNT 3.48 M/UL (4.20-5.40); RED CELL DISTRIBUTION WIDTH 14.9 % (11.6-14.8); WHITE BLOOD COUNT 9.6 K/UL (4.8-10.8)
[2017-01-24 07:51] LABS: ANION GAP 17 (5-15); CALCIUM 9.2 mg/dL (8.6-10.2); CARBON DIOXIDE 24 mEQ/L (20-30); CHLORIDE 101 mEQ/L (98-107); CREATININE 0.8 mg/dL (0.5-0.9); HEMOLYSIS 3; POTASSIUM 3.8 mEQ/L (3.4-4.9); SODIUM 142 mEQ/L (135-145)
[2017-01-24 08:15] VITALS: BP 168/98
[2017-01-24] MEDS: Lisinopril 20mg tab ORAL SCH (08:49)
[2017-01-24] MEDS: Heparin 5000 units/ml inj SUBQ SCH (08:57)
[2017-01-24] MEDS: Dronabinol 2.5mg Cap ORAL SCH ×2 (08:58→17:28)
[2017-01-24 11:47] VITALS: BP 166/107
--- NOTE | 2017-01-24 12:34 | General Progress Note ---
Assessment/Plan Problem List: (1) Anemia ICD Codes: D64.9 - Anemia, unspecified SNOMED: 126005998 (2) Severe protein-calorie malnutrition ICD Codes: E43 - Unspecified severe protein-calorie malnutrition SNOMED: 764316808 (3) HTN (hypertension) ICD Codes: I10 - Essential (primary) hypertension SNOMED: 51954129 (4) Failure to thrive in adult ICD Codes: R62.7 - Adult failure to thrive SNOMED: 244930027 (5) Diabetes mellitus ICD Codes: E11.9 - Type 2 diabetes mellitus without complications SNOMED: 01529149 (6) Hypoalbuminemia due to protein-calorie malnutrition ICD Codes: E46 - Unspecified protein-calorie malnutrition SNOMED: 860968445, 212430842 Assessment/Plan fu VAS fu CT monitor labs peg if needed Subjective ROS Limited/Unobtainable: No Allergies: Coded Allergies: No Known Allergies (Unverified , 01/21/17) Objective Last 24 Hour Vital Signs Date Time Temp Pulse Resp B/P Pulse Ox O2 Delivery O2 Flow Rate FiO2 01/24/17 12:24 166/107 01/24/17 11:47 98.4 101 21 166/107 99 Room Air 01/24/17 08:49 99 168/98 01/24/17 08:49 168/98 01/24/17 08:15 97.7 99 20 168/98 98 Room Air 01/24/17 04:00 98.1 112 17 156/99 100 Room Air 01/24/17 00:00 98.2 112 17 151/95 100 Room Air 01/23/17 20:00 98.1 104 15 127/67 99 Room Air 01/23/17 16:00 98.1 113 16 145/93 100 Room Air Intake and Output 01/23/17 01/24/17 19:00 07:00 # Voids 1 Laboratory Tests 01/24/17 06:40: White Blood Count 9.6, Red Blood Count 3.48L, Hemoglobin 10.2L, Hematocrit 32.8L , Mean Corpuscular Volume 94, Mean Corpuscular Hemoglobin 29.2, Mean Corpuscular Hemoglobin Concent 31.0L, Red Cell Distribution Width 14.9H, Platelet Count 454H, Mean Platelet Volume 6.4L, Neutrophils (%) (Auto) 65.5, Lymphocytes (%) (Auto) 22.7, Monocytes (%) (Auto) 9.2, Eosinophils (%) (Auto) 2.0, Basophils (%) (Auto) 0.8, Sodium Level 142, Potassium Level 3.8, Chloride Level 101, Carbon Dioxide Level 24, Anion Gap 17H, Blood Urea Nitrogen 16, Creatinine 0.8, Estimat Glomerular Filtration Rate , Glucose Level 115H, Calcium Level 9.2 Height (Feet): 5 Height (Inches): 3.00 Weight (Pounds): 101 General Appearance: lethargic EENT: normal ENT inspection Neck: supple Cardiovascular: normal rate Respiratory/Chest: decreased breath sounds Abdomen: normal bowel sounds, non tender, soft Extremities: non-tender ANDREIA HENRIQUEZ Jan 24, 2017 12:34
--- NOTE | 2017-01-24 14:10 | Cardiology Report ---
APPROVED REPORT EKG Measurement Heart [id number] Normal sinus rhythm Septal infarct, age undetermined Abnormal ECG
--- NOTE | 2017-01-24 14:48 | Diagnostic Imaging Report ---
Clinical Indication: ABD PAIN Technique: Patient was unable tolerate oral contrast IV administration nonionic contrast. Venous phase spiral acquisition obtained through the abdomen and pelvis. Multiplanar reconstructions were generated. Total dose length product 800 mGycm. CTDIvol(s) 9 and 12 mGy Comparison: None Findings: There is dense retained contrast within the ascending and transverse colon from prior video swallowing study. This result in only minimal surrounding streak artifact, but could obscure colonic pathology. The appendix is normal. No evidence of diverticulosis or diverticulitis. No small bowel distention. No free or loculated intraperitoneal air or fluid. The distal esophagus, stomach, duodenum are unremarkable. There are tiny fat-containing bilateral Bochdalek hernias The liver, gallbladder, bile ducts, pancreas, spleen, adrenals are unremarkable. The right kidney demonstrates a capsular calcification. Both kidneys demonstrate subcentimeter low-attenuation lesions which are too small to characterize, most likely represent benign simple cortical cysts. The uterus is not visualized, presumed surgically absent. No pelvic mass or adenopathy. Bladder is mildly distended. There are degenerative changes of lower lumbar spine and bilateral sacroiliac joints. The bones are otherwise unremarkable. The included lung bases are clear. Impression: Somewhat limited exam as described No acute process Bilateral renal low-attenuation lesions, too small to characterize, most likely benign simple cortical cysts. No further followup necessary Incidental findings as noted, including tiny fat-containing bilateral Bochdalek hernias, right renal calculus or calcification, surgically absent uterus, degenerative lumbosacral spondylosis The CT scanner at [facility] is accredited by the [employer] and the scans are performed using protocols designed to limit radiation exposure to as low as reasonably achievable to attain images of sufficient resolution adequate for diagnostic evaluation.
[2017-01-24 16:00] VITALS: BP 145/83
--- NOTE | 2017-01-24 16:26 | Pulmonology Progress Note ---
Assessment/Plan Problems: (1) Failure to thrive in adult (2) Severe protein-calorie malnutrition (3) Weight loss (4) Dementia (5) Diabetes mellitus (6) Cerebrovascular accident (CVA) (7) HTN (hypertension) Assessment/Plan eating well wbc lower swallow study noted d/w son dc planning to a rehab is in planning in progress dc when bed available Subjective Interval Events: eating slightly better Allergies: Coded Allergies: No Known Allergies (Unverified , 01/21/17) Objective Last 24 Hour Vital Signs Date Time Temp Pulse Resp B/P Pulse Ox O2 Delivery O2 Flow Rate FiO2 01/24/17 12:24 166/107 01/24/17 11:47 98.4 101 21 166/107 99 Room Air 01/24/17 08:49 99 168/98 01/24/17 08:49 168/98 01/24/17 08:15 97.7 99 20 168/98 98 Room Air 01/24/17 04:00 98.1 112 17 156/99 100 Room Air 01/24/17 00:00 98.2 112 17 151/95 100 Room Air 01/23/17 20:00 98.1 104 15 127/67 99 Room Air Intake and Output 01/23/17 01/24/17 19:00 07:00 # Voids 1 Objective General Appearance: cachetic HEENT: normocephalic, atraumatic Respiratory/Chest: chest wall non-tender, lungs clear Cardiovascular: normal peripheral pulses, normal rate Abdomen: normal bowel sounds Extremities: no cyanosis Laboratory Tests 01/24/17 06:40: White Blood Count 9.6, Red Blood Count 3.48L, Hemoglobin 10.2L, Hematocrit 32.8L , Mean Corpuscular Volume 94, Mean Corpuscular Hemoglobin 29.2, Mean Corpuscular Hemoglobin Concent 31.0L, Red Cell Distribution Width 14.9H, Platelet Count 454H, Mean Platelet Volume 6.4L, Neutrophils (%) (Auto) 65.5, Lymphocytes (%) (Auto) 22.7, Monocytes (%) (Auto) 9.2, Eosinophils (%) (Auto) 2.0, Basophils (%) (Auto) 0.8, Sodium Level 142, Potassium Level 3.8, Chloride Level 101, Carbon Dioxide Level 24, Anion Gap 17H, Blood Urea Nitrogen 16, Creatinine 0.8, Estimat Glomerular Filtration Rate , Glucose Level 115H, Calcium Level 9.2 Current Medications Medications (Trade) Dose Ordered Sig/Mian Route PRN Reason Start Time Stop Time Status Last Admin Dose Admin Acetaminophen (Tylenol) 650 mg Q4H PRN ORAL T>100.5 01/21/17 16:45 02/20/17 16:44 Al Hydroxide/Mg Hydroxide (Mylanta II) 30 ml Q6H PRN ORAL dyspepsia 01/21/17 16:45 02/20/17 16:44 Amlodipine Besylate (Norvasc) 10 mg DAILY ORAL 01/22/17 18:00 02/21/17 17:59 01/24/17 08:49 Clonidine HCl (Catapres) 0.1 mg Q4H PRN ORAL SBP >160 01/22/17 17:00 02/21/17 16:59 01/24/17 12:24 Dextrose (Dextrose 50%) STAT PRN IV Hypoglycemia 01/21/17 17:00 02/20/17 16:59 Dronabinol (Marinol) 2.5 mg BID ORAL 01/23/17 18:00 02/22/17 17:59 01/23/17 17:59 Heparin Sodium (Porcine) (Heparin 5000 units/ml) 5,000 units EVERY 12 HOURS SUBQ 01/22/17 09:00 02/21/17 08:59 01/24/17 08:57 Insulin Aspart (NovoLOG) BEFORE MEALS AND HS SUBQ 01/21/17 21:00 02/20/17 20:59 01/23/17 20:30 Lisinopril (Prinivil) 20 mg DAILY ORAL 01/21/17 17:30 02/20/17 17:29 01/24/17 08:49 Lorazepam (Ativan 2mg/ml 1ml) 0.5 mg Q4H PRN IV For Anxiety 01/21/17 16:45 01/28/17 16:44 Mirtazapine (Remeron) 15 mg BEDTIME ORAL 01/22/17 21:00 02/21/17 20:59 01/23/17 20:29 Morphine Sulfate (Morphine Sulfate) 1 mg Q4H PRN IVP PAIN 4-10 01/21/17 16:45 01/28/17 16:44 Ondansetron HCl (Zofran) 4 mg Q6H PRN IVP Nausea & Vomiting 01/21/17 16:45 02/20/17 16:44 Polyethylene Glycol (Miralax) 17 gm HSPRN PRN ORAL Constipation 01/21/17 21:00 02/20/17 20:59 Zolpidem Tartrate (Ambien) 5 mg HSPRN PRN ORAL Insomnia 01/21/17 21:00 02/20/17 20:59 TONA BLANDON Jan 24, 2017 16:26
[2017-01-24 17:28] VITALS: BP 145/83
[2017-01-24] MEDS ORDERED: Lisinopril 20mg tab ORAL SCH (18:00)
--- NOTE | 2017-01-25 16:04 | Discharge Summary ---
Discharge Summary Hospital Course Date of Admission Jan 21, 2017 at 12:45 Date of Discharge Jan 24, 2017 at 19:55 Admitting Diagnosis failure to thrive,weight loss HPI Shelby Virk is a 76 year old female who was admitted on Jan 21, 2017 at 12:45 for Failure To Thrive, Weight Loss Hospital Course [id number] Discharge Discharge Disposition Patient was discharged to SNF/Subacute Facility(03) Discharge Diagnoses: Melissa Delgado NP Jan 25, 2017 16:04
--- NOTE | 2017-01-26 04:08 | Discharge Summary 2 SIG ---
DATE OF ADMISSION: 01/21/2017 DATE OF DISCHARGE: 01/24/2017 CONSULTANTS: 1. Gomez Nevarez M.D. 2. Kory Bello M.D. BRIEF HOSPITAL COURSE: The patient is a 76-year-old female with history of CVA, diabetes mellitus, and hypertension, presented to ED at the request of her primary care physician for evaluation of decline in health over the past several months and has not been eating. She has a failure to thrive and significant amount of weight loss. She was sent to ED for further evaluation and admission. On evaluation at ED, she had slight leukocytosis and the patient was admitted to medical floor. Dr. Bello was consulted. The patient has depressed mood with decreased energy and anhedonia and cognitive impairment. No manic or psychotic symptoms. No suicidal or homicidal ideation. No delusions. She was diagnosed with major depressive disorder and was started on Remeron [address] Nevarez was likewise consulted. Speech evaluation was done and recommended mechanical soft ground with nectar thick liquids with strict aspiration precautions and one-to-one feed. She was given Marinol. Head CT showed chronic age-related changes. Negative for acute intracranial bleed or mass effect. Abdominal and pelvic CT showed no acute process. The patient had been eating well. WBC lower. The patient was eventually discharged to SNF. FINAL DIAGNOSES: 1. Severe protein-calorie malnutrition. 2. Weight loss. 3. Dementia. 4. Major depressive disorder. 5. Diabetes mellitus. 6. Cerebrovascular accident. 7. Hypertension. Claribel Stanton M.D. I have been assigned to dictate discharge summary on this account and I was not involved in the patient's management. Melissa Delgado N.P. DR: Sienna JOB#: [id number] CC:
--- NOTE | 2017-02-28 16:33 | Diagnostic Imaging Report ---
Indications: Dysphagia Technique: Multiphasic barium dysphagia study was performed under fluoroscopic control with Elvira Quick speech pathologist. Cinegraphic images were obtained. Total fluoroscopy time: 314 sec Dose-area product: 0.31 mGy-m2 Findings: Comparison: None Oral and pharyngeal phases of swallowing demonstrate multiple mechanical abnormalities, as enumerated on speech pathology evaluation form. The patient demonstrates laryngeal penetration of thin, nectar, and honey thickness barium without aspiration, ejected. There is mild barium coating of pharyngeal structures after swallowing. Esophageal phase of swallowing demonstrates no obvious barium pooling.. IMPRESSION: Abnormal oropharyngeal mechanics with laryngeal penetration of multiple consistencies of barium, without aspiration Mild post swallow pharyngeal residue No obvious esophageal dysmotility. Recommendation per speech pathology evaluation form.
== END 2017-01-24 19:55 | DRG 640 ==
LOC: EMR 12:44 → 4E 12:45 → EDBEDREQ 13:22
DX: R62.7 Adult failure to thrive (principal); E43 Unspecified severe protein-calorie malnutrition; F03.90 Unspecified dementia, unspecified severity, without behavioral disturbance, psychotic disturbance, mood disturbance, and anxiety; E11.9 Type 2 diabetes mellitus without complications; I10 Essential (primary) hypertension; D64.9 Anemia, unspecified; Z68.1 Body mass index [BMI] 19.9 or less, adult; F32.9 Major depressive disorder, single episode, unspecified; Z86.73 Personal history of transient ischemic attack (TIA), and cerebral infarction without residual deficits; R63.4 Abnormal weight loss
CPT/HCPCS: 36415; 70450; 74177; 74230; 80048; 80053; 80061; 82150; 82378; 82607; 82746; 82962; 83540; 83550; 83615; 83690; 84439; 84443; 84481; 85007; 85025; 85044; 85060; 85610; 85651; 85730; 86301; 93005; J1815